=== PATIENT | female | born 1985 | race Caucasian/White ===

== ENCOUNTER 2022-12-07 00:32 | Emergency (ER) | payer OTHER ==
[~2022-12-07] VITALS: Ht 154.9 cm; Wt 66.0 kg
[2022-12-07 00:32] VITALS: BP 140/63; PULSE 84; RESP 20; TEMP 97
[~2022-12-07 00:32] MED LIST: CEPH-510 PO; IBUP1TAB5 PO
[2022-12-07] MEDS ORDERED: ACET500T58 PO (02:40)
[2022-12-07 02:54] VITALS: O2SAT 99
== END 2022-12-07 03:14 | disposition home or self-care (01) ==
LOC: ER 00:32
DX: S70.12XA Contusion of left thigh, initial encounter (principal); Z90.49 Acquired absence of other specified parts of digestive tract; V43.52XA Car driver injured in collision with other type car in traffic accident, initial encounter; Y93.89 Activity, other specified; Y92.410 Unspecified street and highway as the place of occurrence of the external cause; Y99.8 Other external cause status